=== PATIENT | male | born 1995 | race Caucasian/White ===

== ENCOUNTER → 2024-09-30 08:14 | Outpatient (REF) | payer OTHER, SELFPAY | LOC: RAD 08:14 | PROVIDERS: ATTENDING PHYSICIAN Family Medicine | DX: M54.50 Low back pain, unspecified (principal) | CPT/HCPCS: 72100; 73502; 77073 ==

== ENCOUNTER 2024-10-13 13:17 | Emergency (ER) | payer OTHER, SELFPAY ==
[2024-10-13 13:18] VITALS: BP 133/90
--- NOTE | 2024-10-13 16:15 | ED.GENMED ---
History of Present Illness
General
Chief Complaint: Back Pain
Source: patient
Exam Limitations: none
Time Seen by Provider: 10/13/24 15:57
History of Present Illness
History of Present Illness:
28yoM with no significant past medical history presenting for evaluation of low back pain. Symptoms have been ongoing for the past 3 months. He denies any trauma. Pain initially started in the right lower back but is now radiating into his
buttock and leg. He reports a numbness sensation to the lateral aspect of the thigh and calf. He is seen his PCP for the symptoms and had x-rays about a week ago which were reportedly normal. He has an MRI scheduled for next week. He is here
today because his pain has been worsening for over the past 3 days. Pain is particularly severe with driving. He was prescribed naproxen initially but ran out. He is not taking anything [id number]. He denies any associated fevers, weight
loss, saddle anesthesia, incontinence. No prior history of malignancy or IV drug use.
Phy Exam
General Physical Exam
General Presentation: well appearing and no apparent distress
General Skin: warm and dry
General Habitus: normal
General Mental: alert
ENT Exam
ENT Exam: normocephalic
Cardiovascular Exam
Cardiovascular Exam: normal peripheral pulses (2+ PT pulses bilaterally)
Pulmonary Exam
Pulmonary Exam: no respiratory distress
Neurological Exam
Neurological Exam: alert and other (5/5 strength in bilateral lower extremities. 2+ patellar reflexes b/l.)
[place] Coma Scale
Eye Opening: Spontaneous
Verbal Response: Oriented
Motor Response: Obeys Commands
GCS Total Score: 15
Musculoskeletal Exam
Musculoskeletal Exam: other (+Tenderness to R lumbar region. No skin changes. No midline tenderness. )
Skin Exam
Skin Exam: normal color and warm/dry
Psychiatric Exam
Psychiatric Exam: normal mood/affect
Course
Orders/Labs/Results
Orders:
Orders
10/13/24 16:18
Ketorolac [Toradol] 30 mg IM NOW STA
Vital Signs
Initial and Last Documented VS:
Initial Vital Signs
Temp Pulse Resp BP Pulse Ox
98.5 F 76 16 133/90 98
10/13/24 13:18 10/13/24 13:18 10/13/24 13:18 10/13/24 13:18 10/13/24 13:18
Last Documented Vital Signs
Temp Pulse Resp BP Pulse Ox
98.5 F 76 16 133/90 98
10/13/24 13:18 10/13/24 13:18 10/13/24 13:18 10/13/24 13:18 10/13/24 16:17
MDM/Problems Addressed
Differential Diagnosis Includes:
28yoM here with R lower back pain x 3 months. Now worsening for the past few days. Radiates down R leg. Outpatient x-rays on 09/30/24 normal and MRI scheduled for next week. No red flags in history. Lower extremities neurovascularly intact.
Differential diagnosis includes: lumbar radiculopathy/herniated disc vs. sciatica
No indication for emergent MRI as he is not having any symptoms of cauda equina. Dose of IM Toradol given in ED. He was started on a course of prednisone and prescription also given for Robaxin. Advised follow-up with orthopedics and ED return
precautions reviewed. Patient discharged in stable condition.
*Pulse Oximetry
SaO2: 98
Oxygen Mode of Delivery: Room air
Patient hypoxic: no (98%)
*Critical Care Note
Total Time (30-74mins, 75-104mins- exclusive of procedures): Not Applicable
ED Attending Note
-
Portions of this chart may have been created with voice recognition software.� Occasional wrong word or��sound alike� substitutions may have occurred due to the inherent limitations of voice recognition software.
Discharge Plan
Departure
Patient Disposition: Home (Routine Discharge)
Date of Disposition: 10/13/24
Time of Disposition: 16:17
Patient with high blood pressure during this ER visit?: No
Discharge Problem:
Low back pain radiating to right leg
Instructions: Radiculopathy (DC)
Prescriptions:
New
prednisone 50 mg tablet
50 mg PO DAILY Qty: 5 0RF
methocarbamol 750 mg tablet
750 mg PO TID PRN (Reason: muscle spasms) Qty: 20 0RF
Referrals:
Rodri Arroyo MD [Active, Orthopedics]
Abdoul Joiner DO [Family Provider, Family Practice]
Activity Restrictions/Additional Instructions:
Take prednisone as prescribed. You may also take Tylenol and ibuprofen as needed. Take Robaxin as needed for muscle spasms.
Complete your MRI in 1 week as previously scheduled. Please call tomorrow to schedule a follow-up with orthopedics.
Return to the ER with any new or worsening symptoms including incontinence or new weakness/numbness.
Interventions
Interventions:
*Risk Screen - Suicide Last Done: 10/13/24 13:20
*General Assessment Last Done: 10/13/24 14:27
*Neglect/Abuse Screening Last Done: 10/13/24 13:20
*Nursing Disposition Last Done: 10/13/24 16:29
ED-Musculoskeletal Assessment Last Done: 10/13/24 14:27
Discharge Date and Time
Discharge Date/Time: 10/13/24 16:30
Print Language: BENGALI
[2024-10-13] MEDS: TORADOL 30 MG IM (16:26)
== END 2024-10-13 16:30 | disposition home or self-care (01) ==
LOC: EMR 13:17
PROVIDERS: EMERGENCY PHYSICIAN Student in an Organized Health Care Education/Training Program; FAMILY PHYSICIAN Family Medicine
DX: M54.50 Low back pain, unspecified (principal); M79.604 Pain in right leg
CPT/HCPCS: 96372; 99284